=== PATIENT | male | born 1940 | race Caucasian/White ===

== ENCOUNTER 2017-03-16 09:31 | Outpatient (CLI) | payer MEDICARE | END 2017-03-16 09:32 | disposition home or self-care (01) | DX: E11.9 Type 2 diabetes mellitus without complications (principal); I10 Essential (primary) hypertension; E78.5 Hyperlipidemia, unspecified; I25.10 Atherosclerotic heart disease of native coronary artery without angina pectoris ==

== ENCOUNTER 2018-02-14 08:00 | Outpatient (CLI) | payer MEDICARE ==
[2018-02-14 19:12] LABS: ALBUMIN/GLOBULIN RATIO 1.2 (1.0-2.2); ALKALINE PHOSPHATASE 30 IU/L (42-121); ALT ALANINE AMINOTRANSFERASE 32 IU/L (10-60); AST ASPARTATE AMINOTRANSFERASE 30 IU/L (10-42); BILIRUBIN,TOTAL 0.9 mg/dL (0.2-1.0); BUN - BLOOD UREA NITROGEN 14 mg/dL (6-20); CALCIUM 9.5 mg/dL (8.5-10.3); CARBON DIOXIDE - CO2 25 mmol/L (21-32); CHLORIDE 101 mmol/L (101-111); CHOL/HDL RATIO 2.7 (<5.0); CHOLESTEROL 129 mg/dL; CREATININE 0.9 mg/dL (0.6-1.2); GFR - MDRD 82 (>89); GLUCOSE 141 mg/dL (70-100); HDL CHOLESTEROL 47 mg/dL; LDL CHOLESTEROL,CALCULATED 63 mg/dL; LDL/HDL RATIO 1.3 (<3.6); SODIUM 134 mmol/L (135-145); TOTAL PROTEIN 7.4 g/dL (6.7-8.2); VLDL CHOLESTEROL 19 mg/dL
[2018-02-14 19:15] LABS: HB2 TOTAL 14.8 g/dL; HEMOGLOBIN A1C 0.73 g/dL; HEMOGLOBIN A1C % 6.7 % (4.6-6.2)
== END 2018-02-14 08:01 | disposition home or self-care (01) ==
LOC: LAB.WCP 08:00
PROVIDERS: ATTEND Family Medicine
DX: I34.0 Nonrheumatic mitral (valve) insufficiency (principal); I25.10 Atherosclerotic heart disease of native coronary artery without angina pectoris; E11.9 Type 2 diabetes mellitus without complications; I10 Essential (primary) hypertension; E78.5 Hyperlipidemia, unspecified
CPT/HCPCS: 36415; 80053; 80061; 82043; 83036; 83721

== ENCOUNTER 2018-03-18 13:29 | Emergency (ER) | payer MEDICARE ==
--- NOTE | 2018-03-18 13:38 | ED Physician Documentation ---
PD HPI FOCAL NEURO - Stated complaint Stated Complaint: NUMBNESS OF FACE - History obtained from History obtained from: Patient - History of Present Illness Timing - onset: How many weeks ago (2 weeks of some trouble with concentration and seems slower walking and thinking, per and daughter. he has had intermittent feeling of numbness left lower face lasting 15-20 minutes as well, occurred about 3 times prior and again today.) Timing - duration: Weeks Timing - details: Waxing and waning Severity of deficit: Mild Numbness: Face, Left (intermittent) Associated symptoms: Headache (mild a few days ago, but none otherwise. No noted injury recently. He says he fell and hit head about 1-2 months ago, but felt okay at that time.), Other (his says he seems to be slower in activity and thought process for 1-2 weeks. Did not note abrupt onset.). No: Nausea / vomiting, Seizure, Syncope, Fever Contributing factors: negative: Anticoagulated, Vascular dz, Atrial fibrillation Baseline status: positive: A&OX3, ambulatory, indep Similar symptoms before: Has not had sx before Recently seen: Not recently seen Review of Systems Constitutional: denies: Fever, Chills, Myalgias Eyes: denies: Loss of vision, Decreased vision Nose: denies: Rhinorrhea / runny nose, Congestion Throat: denies: Sore throat Cardiac: denies: Chest pain / pressure, Palpitations Respiratory: denies: Dyspnea, Cough GI: denies: Abdominal Pain, Abdominal Swelling, Nausea, Vomiting : denies: Dysuria, Frequency Skin: denies: Rash, Lesions, Abrasion (s) Neurologic: reports: Numbness. denies: Generalized weakness, Focal weakness, Difficulty speaking, Near syncope Psychiatric: denies: Depressed, Suicidal, Insomnia Endocrine: denies: Weight loss, Weight gain, Easy bruising / bleeding Immunocompromised: denies: Immunocompromised PD PAST MEDICAL HISTORY - Past Medical History Cardiovascular: Hypertension, High cholesterol Endocrine/Autoimmune: Type 2 diabetes - Past Surgical History Past Surgical History: Yes Cardiovascular: CABG - Present Medications Home Medications: Ambulatory Orders Medication Instructions Recorded Confirmed Aspirin 325 mg PO DAILY 06/14/14 06/14/14 Carvedilol 6.5 mg PO BID 06/14/14 06/14/14 Losartan [Cozaar] 50 mg PO DAILY 06/14/14 06/14/14 Metformin HCl 500 mg PO BID 06/14/14 06/14/14 Nystatin 30 gm TP BID #1 cream..g. 06/14/14 Simvastatin 40 mg PO DAILY 06/14/14 06/14/14 - Allergies Allergies/Adverse Reactions: Allergies Allergy/AdvReac Type Severity Reaction Status Date / Time No Known Drug Allergies Allergy Verified 06/14/14 00:01 - Social History Does the pt smoke?: No Smoking Status: Never smoker Does the pt drink ETOH?: Yes Does the pt have substance abuse?: No - Family History Family history: reports: CAD. denies: Venous thromboembolism - Immunizations Immunizations are current?: Yes - POLST Patient has POLST: Yes PD ED PE NORMAL - Vitals Vital signs reviewed: Yes - General General: Alert and oriented X 3, No acute distress, Well developed/nourished - HEENT HEENT: Atraumatic, PERRL, EOMI, Ears normal, Moist mucous membranes, Pharynx benign - Neck Neck: Supple, no meningeal sign, No adenopathy, No JVD - Cardiac Cardiac: RRR, Other (2/6 murmur left chest c/w possible . Minimal sternal scar c/w prior CABG. ) - Respiratory Respiratory: Clear bilaterally - Abdomen Abdomen: Soft, Non tender - Back Back: No CVA TTP - Derm Derm: Normal color, Warm and dry - Extremities Extremities: No deformity, No tenderness to palpate, Normal ROM s pain, No edema , No calf tenderness / cord - Neuro Neuro: Alert and oriented X 3, applications instructor 2-12 intact, No motor deficit, No sensory deficit, Normal speech Eye Opening: Spontaneous Motor: Obeys Commands Verbal: Oriented GCS Score: 15 - Psych Psych: Normal mood NIHSS - Level of Consciousness Level of consciousness: (0) Alert, Keenly responsive LOC Questions: (0) Answers both Q's correct LOC Commands: (0) Performs both correctly - Gaze Best Gaze: (0) Normal - Visual Visual: (0) No loss - Facial Palsy Facial Palsy: (0) Normal, symmetrical movement - Motor Arms (both separate) Motor Arm (right): (0) No drift Motor Arm (left): (0) No drift - Motor Legs (both separate) Motor Leg (right): (0) No drift Motor Leg (left): (0) No drift - Limb Ataxia Limb Ataxia: (0) Absent - Sensory Sensory: (0) Normal - Best Language Best Language: (0) No aphasia - Dysarthria Dysarthria: (0) Normal - Extinction and Inattention (formally neg Extinction and inattention: (0) No abnormality - Total Score/Results Total Score/Result: 0 Results - Vitals Vitals: Vital Signs - 24 hr 03/18/18 03/18/18 03/18/18 13:42 16:56 18:58 Temperature 36.4 C L Heart Rate 77 73 73 Respiratory 20 16 18 Rate Blood Pressure 132/65 H 156/66 H 154/81 H O2 Saturation 100 100 99 03/18/18 20:31 Temperature Heart Rate 77 Respiratory 18 Rate Blood Pressure 166/77 H O2 Saturation 98 Oxygen O2 Source Room air - Labs Labs: Laboratory Tests 03/18/18 03/18/18 03/18/18 14:30 14:30 14:30 WBC 7.9 RBC 4.09 L Hgb 13.8 L Hct 40.5 L MCV 99.1 H MCH 33.8 H MCHC 34.1 RDW 12.9 Plt Count 205 MPV 7.8 Neut # 5.3 Lymph # 1.3 L [place] # 0.8 Eos # 0.4 Baso # 0.1 Absolute Nucleated RBC 0.00 Nucleated RBC % 0.0 ESR 65 H Sodium 131 L Potassium 4.6 Chloride 97 L Carbon Dioxide 25 Anion Gap 9.0 BUN 22 H Creatinine 1.1 Estimated GFR (MDRD) 65 L Glucose 189 H Calcium 9.6 Magnesium 1.8 Total Bilirubin 1.1 H AST 30 ALT 32 Alkaline Phosphatase 41 L Total Protein 8.0 Albumin 4.0 Globulin 4.0 Albumin/Globulin Ratio 1.0 Lipase 29 - Rads (name of study) brain MRI Radiology: Prelim report reviewed, Discussed with rads (right sided subdural acute to subacute, with 16 mm maximal thickness and no midline shift. ) PD MEDICAL DECISION MAKING - ED course Complexity details: reviewed results, re-evaluated patient (some forgetfulness noticeable now; still normal neuro. no headache. stable patient. discussed dispo and they would prefer [facility] so called Neurosurgery there. The surgeon was in a case so took couple hours to return call but did then and accepted transfer. ), considered differential, d/w patient, d/w family Departure - Departure Disposition: 02 Transfer Acute Care Hosp Clinical Impression: Subdural hematoma Altered mental status, unspecified Qualifiers: Altered mental status type: disorientation Qualified Code(s): R41.0 - Disorientation, unspecified Condition: Stable Record reviewed to determine appropriate education?: Yes Discharge Date/Time: 03/18/18 20:35
[2018-03-18] MEDS ORDERED: SODIUM CHLORIDE 0.9% 500 ML IV ONE (14:00)
[2018-03-18 14:36] LABS: BASOPHILS # (AUTO) 0.1 10^3/uL (0.0-0.1); BASOPHILS % (AUTO) 1.2 %; EOSINOPHILS # (AUTO) 0.4 10^3/uL (0.0-0.7); EOSINOPHILS % (AUTO) 4.5 %; HGB - HEMOGLOBIN 13.8 g/dL (14.0-18.0); LYMPHOCYTES # (AUTO) 1.3 10^3/uL (1.5-3.5); LYMPHOCYTES % (AUTO) 16.4 %; MEAN CORPUSCULAR HEMOGLOBIN 33.8 pg (27.0-31.0); MEAN CORPUSCULAR HGB CONC 34.1 g/dL (32.0-36.0); MEAN CORPUSCULAR VOLUME 99.1 fL (80.0-94.0); MEAN PLATELET VOLUME 7.8 fL (7.4-11.4); MONOCYTES # (AUTO) 0.8 10^3/uL (0.0-1.0); MONOCYTES % (AUTO) 10.2 %; NEUTROPHILS # (AUTO) 5.3 10^3/uL (1.5-6.6); NEUTROPHILS % (AUTO) 67.7 %; PLT - PLATELET COUNT 205 10^3/uL (130-450); RED BLOOD COUNT 4.09 10^6/uL (4.70-6.10); RED CELL DISTRIBUTION WIDTH 12.9 % (12.0-15.0); WHITE BLOOD COUNT 7.9 x10^3/uL (4.8-10.8)
[2018-03-18 14:47] LABS: BILIRUBIN,TOTAL 1.1 mg/dL (0.2-1.0); CALCIUM 9.6 mg/dL (8.5-10.3); CREATININE 1.1 mg/dL (0.6-1.2); MAGNESIUM 1.8 mg/dL (1.7-2.8)
--- NOTE | 2018-03-18 15:46 | MRI Report ---
EXAM: MRI BRAIN WITHOUT CONTRAST EXAM DATE: 03/18/2018 03:31 PM. CLINICAL HISTORY: 78-year-old man with intermittent left facial numbness. COMPARISON: None. TECHNIQUE: Multiplanar, multisequence T1-weighted and fluid-sensitive MR sequences of the brain were performed. Sequences optimized for routine evaluation. Other: None. IV Contrast: None. FINDINGS: Parenchyma: No evidence of acute infarct on diffusion weighted sequence. The parenchyma demonstrates mild to moderate burden of nonspecific FLAIR hyperintensities in the deep cerebral white matter, most consistent with sequelae of chronic small vessel ischemic disease. No evidence of intraparenchymal o n susceptibility weighted sequence. Pituitary: Unremarkable. Ventricles and Extra-axial Spaces: Right-sided subdural hemispheric subdural hematoma is present clark uring up to 16 mm. Fluid collection pertains T1 hyperintensity, consistent with acute to subacute blo od products. Mass effect results in minimal narrowing of the right lateral ventricle without signific ant midline shift. Orbits: Unremarkable. Sinuses: Moderate, scattered mucosal thickening is present in the paranasal sinuses. Mastoid air cell s are clear. Major Vascular Flow Voids: Intact. IMPRESSION: 1. Right holohemispheric subdural hematoma measuring up to 16 mm in maximum thickness. 2. Mild to moderate white matter changes, most consistent with sequelae of chronic small vessel ische tonya disease and a common finding in this age group. RADIA The above findings were discussed with Dr. Wiseman by Dr. Maximo Isaacs at 15:44 hrs on 03/18/18 . Referring Provider Line: [phone] SITE ID: [id number]
[2018-03-18 20:31] VITALS: BP 166/77
== END 2018-03-18 20:35 | disposition short-term general hospital (02) ==
LOC: ED 13:29
DX: S06.5X9A Traumatic subdural hemorrhage with loss of consciousness of unspecified duration, initial encounter (principal); W19.XXXA Unspecified fall, initial encounter; R41.0 Disorientation, unspecified; R94.31 Abnormal electrocardiogram [ECG] [EKG]; I10 Essential (primary) hypertension; E78.00 Pure hypercholesterolemia, unspecified; E11.9 Type 2 diabetes mellitus without complications; Z95.1 Presence of aortocoronary bypass graft; Z79.4 Long term (current) use of insulin; Z79.82 Long term (current) use of aspirin
CPT/HCPCS: 36415; 70551; 80053; 83690; 83735; 85025; 85651; 93005; 99284; 99285

== ENCOUNTER 2018-04-17 09:11 | Outpatient (CLI) | payer MEDICARE, OTHER ==
--- NOTE | 2018-04-17 16:09 | Ultrasound Report ---
Procedure Date: 04/17/2018 Accession Number: [id number] / [id number] Procedure: US - Carotid Doppler Complete CPT Code: FULL RESULT: EXAM: CAROTID DOPPLER ULTRASOUND EXAM DATE: 04/17/2018 10:41 AM. CLINICAL HISTORY: Coronary artery disease, hypertension, hyperlipidemia. COMPARISON: None. TECHNIQUE: Real-time sonographic vascular imaging was performed by the avid editor through the carotid arterial system with a linear transducer utilizing color-flow, Doppler flow and spectral analysis. Multiple b2b outside sales representative static images were saved for review. FINDINGS: Prominent calcified plaque within distal right carotid bulb and proximal ICA limits grayscale evaluation. Calcified plaque within proximal left ICA and distal carotid bulb limits grayscale evaluation. Right: RCCA Prox: PSV 47 cm/sec. RCCA Dist: PSV 65 cm/sec, EDV 11 cm/sec. RECA: PSV 195 cm/sec. R Bulb: PSV 209 cm/sec, EDV 33 cm/sec, ICA/CCA ratio 3.21. LAVINIA Prox: PSV 116 cm/sec, EDV 16 cm/sec, ICA/CCA ratio 1.78. LAVINIA Mid: PSV 81 cm/sec, EDV 30 cm/sec, ICA/CCA ratio 1.24. LAVINIA Dist: PSV 71 cm/sec, EDV 24 cm/sec, ICA/CCA ratio 1.09. RVA: PSV 42 cm/sec. RVA flow direction: Antegrade. Left: LCCA Prox: PSV 63 cm/sec. LCCA Dist: PSV 72 cm/sec, EDV 11 cm/sec. LECA: PSV 193 cm/sec. L Bulb: PSV 41 cm/sec, EDV 8 cm/sec, ICA/CCA ratio 0.56. LICA Prox: PSV 76 cm/sec, EDV 20 cm/sec, ICA/CCA ratio 1.05. LICA Mid: PSV 110 cm/sec, EDV 26 cm/sec, ICA/CCA ratio 1.52. LICA Dist: PSV 86 cm/sec, EDV 27 cm/sec, ICA/CCA ratio 1.19. LVA: PSV 51 cm/sec. LVA flow direction: Antegrade. Other: None. IMPRESSION: 1. No hemodynamically significant internal carotid arterial stenoses. 2. Prominent calcified plaque within bilateral distal carotid bulbs and proximal internal carotid arteries. If there is clinical indication to further assess, consider CT angiography. Validated velocity measurements with angiographic measurements and velocity criteria are extrapolated from diameter data as defined by the Society of Radiologists in Ultrasound Consensus Conference Radiology 2003; 229;340-346. RADIA
== END 2018-04-17 09:12 | disposition home or self-care (01) ==
LOC: DI 09:11
PROVIDERS: ATTEND Specialist
DX: I25.10 Atherosclerotic heart disease of native coronary artery without angina pectoris (principal); I10 Essential (primary) hypertension; I65.23 Occlusion and stenosis of bilateral carotid arteries; I08.0 Rheumatic disorders of both mitral and aortic valves; I51.7 Cardiomegaly; E78.5 Hyperlipidemia, unspecified; F32.9 Major depressive disorder, single episode, unspecified; I62.00 Nontraumatic subdural hemorrhage, unspecified; I77.810 Thoracic aortic ectasia
CPT/HCPCS: 93306; 93880

== ENCOUNTER 2018-08-19 08:00 | Outpatient (CLI) | payer MEDICARE, OTHER ==
[2018-08-19 18:34] LABS: BASOPHILS # (AUTO) 0.1 10^3/uL (0.0-0.1); BASOPHILS % (AUTO) 0.9 %; EOSINOPHILS # (AUTO) 0.7 10^3/uL (0.0-0.7); EOSINOPHILS % (AUTO) 9.1 %; HGB - HEMOGLOBIN 12.9 g/dL (14.0-18.0); LYMPHOCYTES % (AUTO) 13.1 %; MEAN CORPUSCULAR HEMOGLOBIN 34.9 pg (27.0-31.0); MEAN CORPUSCULAR HGB CONC 34.3 g/dL (32.0-36.0); MEAN CORPUSCULAR VOLUME 101.9 fL (80.0-94.0); MEAN PLATELET VOLUME 8.2 fL (7.4-11.4); MONOCYTES # (AUTO) 0.7 10^3/uL (0.0-1.0); MONOCYTES % (AUTO) 9.5 %; NEUTROPHILS # (AUTO) 5.1 10^3/uL (1.5-6.6); NEUTROPHILS % (AUTO) 67.4 %; PLT - PLATELET COUNT 191 10^3/uL (130-450); RED BLOOD COUNT 3.71 10^6/uL (4.70-6.10); RED CELL DISTRIBUTION WIDTH 13.3 % (12.0-15.0); WHITE BLOOD COUNT 7.5 x10^3/uL (4.8-10.8)
[2018-08-19 19:17] LABS: ALBUMIN 3.9 g/dL (3.2-5.5); ALBUMIN/GLOBULIN RATIO 1.1 (1.0-2.2); BILIRUBIN,TOTAL 0.9 mg/dL (0.2-1.0); CALCIUM 9.4 mg/dL (8.5-10.3); CREATININE 0.8 mg/dL (0.6-1.2); TOTAL PROTEIN 7.4 g/dL (6.7-8.2)
[2018-08-19 19:37] LABS: HB2 TOTAL 13.4 g/dL; HEMOGLOBIN A1C 0.56 g/dL
== END 2018-08-19 08:01 | disposition home or self-care (01) ==
LOC: LAB.WCP 08:00
PROVIDERS: ATTEND Family Medicine
DX: N40.0 Benign prostatic hyperplasia without lower urinary tract symptoms (principal); I25.10 Atherosclerotic heart disease of native coronary artery without angina pectoris; E11.9 Type 2 diabetes mellitus without complications; I10 Essential (primary) hypertension; F32.9 Major depressive disorder, single episode, unspecified; I62.00 Nontraumatic subdural hemorrhage, unspecified
CPT/HCPCS: 36415; 80053; 82043; 83036; 85025

== ENCOUNTER 2019-03-25 09:32 | Outpatient (CLI) | payer MEDICARE, OTHER ==
[2019-03-25 13:35] LABS: BASOPHILS # (AUTO) 0.1 10^3/uL (0.0-0.1); BASOPHILS % (AUTO) 1.3 %; EOSINOPHILS # (AUTO) 0.6 10^3/uL (0.0-0.7); EOSINOPHILS % (AUTO) 8.1 %; HGB - HEMOGLOBIN 12.9 g/dL (14.0-18.0); LYMPHOCYTES # (AUTO) 1.2 10^3/uL (1.5-3.5); LYMPHOCYTES % (AUTO) 15.7 %; MEAN CORPUSCULAR HGB CONC 33.9 g/dL (32.0-36.0); MEAN CORPUSCULAR VOLUME 100.1 fL (80.0-94.0); MEAN PLATELET VOLUME 8.3 fL (7.4-11.4); MONOCYTES # (AUTO) 0.9 10^3/uL (0.0-1.0); MONOCYTES % (AUTO) 11.5 %; NEUTROPHILS # (AUTO) 4.8 10^3/uL (1.5-6.6); NEUTROPHILS % (AUTO) 63.4 %; PLT - PLATELET COUNT 187 10^3/uL (130-450); RED BLOOD COUNT 3.78 10^6/uL (4.70-6.10); RED CELL DISTRIBUTION WIDTH 12.8 % (12.0-15.0); WHITE BLOOD COUNT 7.5 x10^3/uL (4.8-10.8)
[2019-03-25 14:01] LABS: % IRON SATURATION 27 % (20-50); ALBUMIN/GLOBULIN RATIO 1.2 (1.0-2.2); ALKALINE PHOSPHATASE 40 IU/L (42-121); ALT ALANINE AMINOTRANSFERASE 30 IU/L (10-60); AST ASPARTATE AMINOTRANSFERASE 30 IU/L (10-42); BILIRUBIN,TOTAL 0.5 mg/dL (0.2-1.0); BUN - BLOOD UREA NITROGEN 15 mg/dL (6-20); CALCIUM 9.8 mg/dL (8.5-10.3); CARBON DIOXIDE - CO2 26 mmol/L (21-32); CHLORIDE 100 mmol/L (101-111); CHOL/HDL RATIO 2.4 (<5.0); CHOLESTEROL 132 mg/dL; CREATININE 0.9 mg/dL (0.6-1.2); GFR - MDRD 81 (>89); GLUCOSE 146 mg/dL (70-100); HDL CHOLESTEROL 56 mg/dL; IRON 86 ug/dL (45-182); LDL CHOLESTEROL,CALCULATED 60 mg/dL; LDL/HDL RATIO 1.1 (<3.6); SODIUM 135 mmol/L (135-145); TOTAL IRON BINDING CAPACITY 322 ug/dL (250-450); TOTAL PROTEIN 7.4 g/dL (6.7-8.2); TRANSFERRIN 230 mg/dL (180-329); VLDL CHOLESTEROL 16 mg/dL
[2019-03-25 14:11] LABS: FOLATE 20.55 ng/mL (5.90 - >24.8)
== END 2019-03-25 09:33 | disposition home or self-care (01) ==
LOC: LAB.WCP 09:32
PROVIDERS: ATTEND Family Medicine
DX: D64.9 Anemia, unspecified (principal); I25.10 Atherosclerotic heart disease of native coronary artery without angina pectoris; F32.9 Major depressive disorder, single episode, unspecified; E11.9 Type 2 diabetes mellitus without complications
CPT/HCPCS: 36415; 80053; 80061; 82607; 82746; 83540; 83721; 84443; 84466; 85025

== ENCOUNTER 2019-10-24 11:55 | Outpatient (CLI) | payer MEDICARE, OTHER ==
[2019-10-24 18:29] LABS: BASOPHILS # (AUTO) 0.1 10^3/uL (0.0-0.1); BASOPHILS % (AUTO) 1.2 %; EOSINOPHILS # (AUTO) 0.6 10^3/uL (0.0-0.7); EOSINOPHILS % (AUTO) 7.7 %; HGB - HEMOGLOBIN 13.6 g/dL (14.0-18.0); LYMPHOCYTES # (AUTO) 1.4 10^3/uL (1.5-3.5); LYMPHOCYTES % (AUTO) 19.2 %; MEAN CORPUSCULAR HEMOGLOBIN 33.2 pg (27.0-31.0); MEAN CORPUSCULAR HGB CONC 32.8 g/dL (32.0-36.0); MEAN CORPUSCULAR VOLUME 101.2 fL (80.0-94.0); MEAN PLATELET VOLUME 10.8 fL (7.4-11.4); MONOCYTES # (AUTO) 0.8 10^3/uL (0.0-1.0); MONOCYTES % (AUTO) 11.1 %; NEUTROPHILS # (AUTO) 4.4 10^3/uL (1.5-6.6); NEUTROPHILS % (AUTO) 60.3 %; PLT - PLATELET COUNT 190 10^3/uL (130-450); RED CELL DISTRIBUTION WIDTH 12.6 % (12.0-15.0); WHITE BLOOD COUNT 7.4 x10^3/uL (4.8-10.8)
[2019-10-24 18:43] LABS: ALBUMIN 4.2 g/dL (3.2-5.5); ALBUMIN/GLOBULIN RATIO 1.2 (1.0-2.2); BILIRUBIN,TOTAL 0.8 mg/dL (0.2-1.0); CALCIUM 9.9 mg/dL (8.5-10.3); CREATININE 1.1 mg/dL (0.6-1.2); TOTAL PROTEIN 7.6 g/dL (6.7-8.2)
[2019-10-24 18:48] LABS: HB2 TOTAL 13.9 g/dL; HEMOGLOBIN A1C 0.73 g/dL
== END 2019-10-24 23:59 | disposition home or self-care (01) ==
LOC: LAB.WCP 11:55
PROVIDERS: ATTEND Family Medicine
DX: D64.9 Anemia, unspecified (principal); E11.9 Type 2 diabetes mellitus without complications; I25.10 Atherosclerotic heart disease of native coronary artery without angina pectoris; I10 Essential (primary) hypertension
CPT/HCPCS: 36415; 80053; 82043; 82570; 82607; 83036; 84443; 85025

== ENCOUNTER 2020-04-06 10:31 | Outpatient (CLI) | payer MEDICARE, OTHER ==
[2020-04-06 18:23] LABS: HB2 TOTAL 13.6 g/dL; HEMOGLOBIN A1C 0.72 g/dL
[2020-04-06 18:37] LABS: % IRON SATURATION 23 % (20-50); BUN - BLOOD UREA NITROGEN 21 mg/dL (6-20); CALCIUM 9.2 mg/dL (8.5-10.3); CARBON DIOXIDE - CO2 24 mmol/L (21-32); CHLORIDE 102 mmol/L (101-111); CHOL/HDL RATIO 2.4 (<5.0); CHOLESTEROL 125 mg/dL; GLUCOSE 154 mg/dL (70-100); HDL CHOLESTEROL 52 mg/dL; IRON 78 ug/dL (45-182); LDL CHOLESTEROL,CALCULATED 57 mg/dL; LDL/HDL RATIO 1.1 (<3.6); SODIUM 134 mmol/L (135-145); TOTAL IRON BINDING CAPACITY 340 ug/dL (250-450); TRANSFERRIN 243 mg/dL (180-329); VLDL CHOLESTEROL 16 mg/dL
== END 2020-04-06 23:59 | disposition home or self-care (01) ==
LOC: LAB.WCP 10:31
PROVIDERS: ATTEND Family Medicine
DX: E11.59 Type 2 diabetes mellitus with other circulatory complications (principal); E78.5 Hyperlipidemia, unspecified; D64.9 Anemia, unspecified
CPT/HCPCS: 36415; 80048; 80061; 82728; 83036; 83540; 83721; 84466

== ENCOUNTER 2020-05-28 07:00 | Outpatient (CLI) | payer MEDICARE, OTHER ==
[2020-05-28 18:49] LABS: HEMOGLOBIN A1C 0.7 g/dL; HEMOGLOBIN A1C % 6.4 % (4.6-6.2)
[2020-05-28 18:50] LABS: ALBUMIN 4.4 g/dL (3.2-5.5); ALBUMIN/GLOBULIN RATIO 1.2 (1.0-2.2); BILIRUBIN,TOTAL 0.9 mg/dL (0.2-1.0); CALCIUM 9.7 mg/dL (8.5-10.3); CREATININE 1.2 mg/dL (0.6-1.2)
== END 2020-05-28 23:59 | disposition home or self-care (01) ==
LOC: LAB.WCP 07:00
PROVIDERS: ATTEND Family Medicine
DX: E11.59 Type 2 diabetes mellitus with other circulatory complications (principal)
CPT/HCPCS: 36415; 80053; 83036